=== PATIENT | female | born 1930 | race Caucasian/White ===

== ENCOUNTER 2016-08-06 13:28 | Emergency (ER) | payer MEDICARE, BC ==
--- NOTE | ~2016-08-06 | CT101 ---
[facility] A Service of [facility] RADIOLOGY TEXT RESULTS PATIENT: WOO JIMÉNEZ LOCATION: [facility] : [birth year] UNIT #: [id number] AGE: [address]: Vicente Gomez MD SEX: F ORDER DR: [id number] [facility] [address] [place], [place] [address] [id number] E MR#: [id number] Acc #: [id number] NAME: WOO JIMÉNEZ : 1930 SEX: F STUDY DATE/TIME: 08/06/2016 14:09 UNIT: [facility] ROOM: STUDY DESCRIPTION: CT Maxillofacial Area Wo Cont Attending Physician: Vicente Gomez M.D. Ordering Physician: Vicente Gomez M.D. Primary Care Physician: Jennifer Jose M.D. MEDICAL IMAGING REPORT This report is preliminary unless electronic signature is present EXAM CT facial bones without contrast 08/06/2016 HISTORY 85-year-old female with right forehead pain status post fall today. COMPARISON None TECHNIQUE Routine unenhanced axial images performed through the facial bones. Coronal and sagittal reformatted images. This CT exam was performed with one or more of the following radiation dose reduction techniques: automatic exposure control, adjustment of mA and/or kV according to patient size, and iterative reconstruction. FINDINGS There is mild right supraorbital soft tissue swelling with a small soft tissue laceration and minimal soft tissue gas. No evidence of acute fracture. Orbits are intact. Mandible intact. Temporomandibular joints are congruent. Nasal bones are intact. Very small mucous retention cyst, right maxillary sinus. Paranasal sinuses are otherwise clear. Visualized mastoid air cells are clear. IMPRESSION Mild right supraorbital soft tissue swelling with a small laceration and minimal soft tissue gas. No acute bony abnormality. No evidence of acute fracture or dislocation. Dictated by... Christopher Varghese M.D. [facility] A Service of [facility] RADIOLOGY TEXT RESULTS PATIENT: WOO JIMÉNEZ LOCATION: [facility] : [birth year] UNIT #: [id number] AGE: [address]: Vicente Gomez MD SEX: F ORDER DR: THIS IS AN ELECTRONICALLY VERIFIED REPORT Christopher Varghese M.D. at 08/07/2016 4:48 PM Ambar TD: 08/06/2016 17:27 JOB #: [id number] MEDICAL IMAGING REPORT Page 1 of 1 COPY
--- NOTE | ~2016-08-06 | CT71 ---
[facility] A Service of [facility] RADIOLOGY TEXT RESULTS PATIENT: WOO JIMÉNEZ LOCATION: [facility] : [birth year] UNIT #: [id number] AGE: [address]: Vicente Gomez MD SEX: F ORDER DR: [id number] [facility] [address] [place], [place] [address] [id number] E MR#: [id number] Acc #: [id number] NAME: WOO JIMÉNEZ : 1930 SEX: F STUDY DATE/TIME: 08/06/2016 14:07 UNIT: [facility] ROOM: STUDY DESCRIPTION: CT Head Wo Contrast Attending Physician: Vicente Gomez M.D. Ordering Physician: Vicente Gomez M.D. Primary Care Physician: Jennifer Jose M.D. MEDICAL IMAGING REPORT This report is preliminary unless electronic signature is present EXAM CT head without contrast 08/06/2016 HISTORY 85-year-old female with head pain status post fall today. COMPARISON CT head 07/27/2010 TECHNIQUE Routine unenhanced axial images performed through the brain. FINDINGS No hemorrhage, acute infarction, mass lesion, or abnormal extraaxial fluid collection. No midline shift or focal mass effect. Ventricular system normal in size and configuration. Jigy-kf-scdukqey generalized atrophy and chronic small vessel disease is unchanged from prior exam. There is mild right supraorbital soft tissue swelling and a small soft tissue laceration with soft tissue with minimal soft tissue gas. No acute bony abnormality. Visualized paranasal sinuses and mastoid air cells are clear. IMPRESSION 1. No acute intracranial abnormality. 2. Stable age-related atrophy and chronic small vessel disease. 3. Mild right supraorbital soft tissue swelling with small laceration and minimal soft tissue gas. No acute bony abnormality. Dictated by... Christopher Varghese M.D. THIS IS AN ELECTRONICALLY VERIFIED REPORT [facility] A Service of [facility] RADIOLOGY TEXT RESULTS PATIENT: WOO JIMÉNEZ LOCATION: [facility] : [birth year] UNIT #: [id number] AGE: [address]: Vicente Gomez MD SEX: F ORDER DR: Christopher Varghese M.D. at 08/07/2016 4:47 PM JESUS/naty TD: 08/06/2016 17:14 JOB #: [id number] MEDICAL IMAGING REPORT Page 1 of 1 COPY
--- NOTE | ~2016-08-06 | CR20 ---
[facility] A Service of [facility] & [facility] RADIOLOGY TEXT RESULTS PATIENT: WOO JIMÉNEZ LOCATION: [facility] : [birth year] UNIT #: [id number] AGE: [address]: Vicente Gomez MD SEX: F ORDER DR: [id number] [facility] [address] [place], [place] [address] [id number] E MR#: [id number] Acc #: [id number] NAME: WOO JIMÉNEZ : 1930 SEX: F STUDY DATE/TIME: 08/06/2016 13:40 UNIT: [facility] ROOM: STUDY DESCRIPTION: CR Ankle Min 3 Views Lt Attending Physician: Vicente Gomez M.D. Ordering Physician: Vicente Gomez M.D. Primary Care Physician: Jennifer Jose M.D. MEDICAL IMAGING REPORT This report is preliminary unless electronic signature is present EXAM Left ankle as 08/06/2016 HISTORY 85-year-old female with left ankle pain status post fall today. COMPARISON Left ankle 09/27/2015 FINDINGS 3 views of the left ankle demonstrate no displaced fracture or dislocation. Ankle mortise is symmetric. Talar dome intact. No ankle effusion. Vascular calcifications. IMPRESSION No evidence of acute fracture or dislocation. Dictated by... Christopher Varghese M.D. THIS IS AN ELECTRONICALLY VERIFIED REPORT Christopher Varghese M.D. at 08/07/2016 4:47 PM JESUS/naty TD: 08/06/2016 16:23 JOB #: [id number] MEDICAL IMAGING REPORT Page 1 of 1 COPY
--- NOTE | ~2016-08-06 | CR173 ---
[facility] A Service of [facility] & [facility] RADIOLOGY TEXT RESULTS PATIENT: WOO JIMÉNEZ LOCATION: [facility] : [birth year] UNIT #: [id number] AGE: [address]: Vicente Gomez MD SEX: F ORDER DR: [id number] [facility] [address] [place], [place] [address] [id number] E MR#: [id number] Acc #: [id number] NAME: WOO JIMÉNEZ : 1930 SEX: F STUDY DATE/TIME: 08/06/2016 13:44 UNIT: [facility] ROOM: STUDY DESCRIPTION: CR Knee 3 Views Rt Attending Physician: Vicente Gomez M.D. Ordering Physician: Vicente Gomez M.D. Primary Care Physician: Jennifer Jose M.D. MEDICAL IMAGING REPORT This report is preliminary unless electronic signature is present EXAM Right knee 08/06/2016 HISTORY Right knee pain status post fall today. COMPARISON None FINDINGS 3 views of the right knee demonstrate no acute fracture or dislocation. No joint effusion. Joint spaces are adequately maintained. Soft tissues are unremarkable. IMPRESSION Unremarkable right knee. Dictated by... Christopher Varghese M.D. THIS IS AN ELECTRONICALLY VERIFIED REPORT Christopher Varghese M.D. at 08/07/2016 4:47 PM Ambar TD: 08/06/2016 16:26 JOB #: [id number] MEDICAL IMAGING REPORT Page 1 of 1 COPY
--- NOTE | ~2016-08-06 | CR172 ---
[facility] A Service of [facility] & [facility] RADIOLOGY TEXT RESULTS PATIENT: WOO JIMÉNEZ LOCATION: [facility] : [birth year] UNIT #: [id number] AGE: [address]: Vicente Gomez MD SEX: F ORDER DR: [id number] [facility] [address] [place], [place] [address] [id number] E MR#: [id number] Acc #: [id number] NAME: WOO JIMÉNEZ : 1930 SEX: F STUDY DATE/TIME: 08/06/2016 13:43 UNIT: [facility] ROOM: STUDY DESCRIPTION: CR Knee 3 Views Lt Attending Physician: Vicente Gomez M.D. Ordering Physician: Vicente Gomez M.D. Primary Care Physician: Jennifer Jose M.D. MEDICAL IMAGING REPORT This report is preliminary unless electronic signature is present EXAM Left knee 08/06/2016 HISTORY 85-year-old female with left knee pain status post fall today. COMPARISON None FINDINGS 3 views of the left knee demonstrate no acute fracture or dislocation. No joint effusion. Joint spaces are adequately maintained. IMPRESSION Unremarkable left knee. Dictated by... Christopher Varghese M.D. THIS IS AN ELECTRONICALLY VERIFIED REPORT Christopher Varghese M.D. at 08/07/2016 4:47 PM Ambar TD: 08/06/2016 16:25 JOB #: [id number] MEDICAL IMAGING REPORT Page 1 of 1 COPY
--- NOTE | ~2016-08-06 | CT52 ---
[facility] A Service of [facility] RADIOLOGY TEXT RESULTS PATIENT: WOO JIMÉNEZ LOCATION: [facility] : [birth year] UNIT #: [id number] AGE: [address]: Vicente Gomez MD SEX: F ORDER DR: [id number] [facility] [address] [place], [place] [address] [id number] E MR#: [id number] Acc #: [id number] NAME: WOO JIMÉNEZ : 1930 SEX: F STUDY DATE/TIME: 08/06/2016 14:11 UNIT: [facility] ROOM: STUDY DESCRIPTION: CT Cervical Spine Wo Cont Attending Physician: Vicente Gomez M.D. Ordering Physician: Vicente Gomez M.D. Primary Care Physician: Jennifer Jose M.D. MEDICAL IMAGING REPORT This report is preliminary unless electronic signature is present EXAM CT cervical spine without contrast INDICATIONS Patient fell today. Posterior neck pain. PROCEDURE Unenhanced CT of the cervical spine COMPARISON None FINDINGS There is multilevel degenerative change. Cervical bodies have normal height. Craniocervical junction and the dens are intact. No fracture. Varying degrees of multilevel central canal neural foraminal narrowing. IMPRESSION 1. No acute findings. 2. Multilevel degenerative change. Dictated by... Patrice Hinton M.D. THIS IS AN ELECTRONICALLY VERIFIED REPORT Patrice Hinton M.D. at 08/07/2016 7:40 AM ODALIS/naty TD: 08/06/2016 17:21 JOB #: [id number] MEDICAL IMAGING REPORT [facility] A Service of [facility] RADIOLOGY TEXT RESULTS PATIENT: WOO JIMÉNEZ LOCATION: [facility] : [birth year] UNIT #: [id number] AGE: [address]: Vicente Gomez MD SEX: F ORDER DR: Page 1 of 1 COPY
[~2016-08-06 13:28] MED LIST: ALLERGY; ALLERGY SHOT; ALPRAZOLAM; ALPRAZOLAM PO; ALPRAZOLAM0.25 MG PO; AMANTADINE100 M1 PO; ASPIRIN; ASPIRIN EC81 M1 PO; ASPIRIN81 M1 PO; ASPIRIN81 M2 PO; BAYER CHEWABLE81 MG PO; BLINK TEARS; CARAFATE1 G PO; CARBIDOPA PO; CENTRUM SILVER; DOCUSATE SODIU100 MG PO; ESCITALOPRAM OX10 MG PO; FEOSOL PO; FIBER WELL; FLEXERIL10 MG PO; FLOVENT DI50 MCG/DIS IH; FLOVENT DISKU100 MCG IH; IRON SUPPLEMENT1 TAB PO; K-DUR20 ME1 PO; LEXAPRO; LEXAPRO PO; MYSOLINE50 MG PO; NORCO1 TAB 10/3 PO; PRIMIDONE50 MG PO; PROTONIX; PROTONIX PO; TEARS OU; ULTRAM PO; ZOCOR; ZOCOR20 MG PO; [UNRECOGNIZED DRUG - MIXTURE] PO; [UNRECOGNIZED DRUG - OTHER] PO
== END 2016-08-06 15:57 | disposition home or self-care (01) ==
LOC: CED 13:28
DX: S01.111A Laceration without foreign body of right eyelid and periocular area, initial encounter (principal); S80.02XA Contusion of left knee, initial encounter; S80.01XA Contusion of right knee, initial encounter; Z23 Encounter for immunization; Z79.899 Other long term (current) drug therapy; Z79.891 Long term (current) use of opiate analgesic; Z88.0 Allergy status to penicillin; Z88.2 Allergy status to sulfonamides; Z88.5 Allergy status to narcotic agent; Z91.041 Radiographic dye allergy status; Z88.8 Allergy status to other drugs, medicaments and biological substances; W01.0XXA Fall on same level from slipping, tripping and stumbling without subsequent striking against object, initial encounter
CPT/HCPCS: 12014; 70450; 70486; 72125; 73562; 73610; 90471; 90715; 99284